=== PATIENT | male | born 1990 | race Caucasian/White ===

== ENCOUNTER → 2016-10-11 | Outpatient (CLI) | payer OTHER ==
[2016-10-11 13:44] LABS: LUTEINIZING HORMONE 3.5 mIU/mL (1.5-9.3); PROLACTIN 9.8 NG/ML (2.1-17.7)
[2016-10-11 13:45] LABS: FOLLICLE STIMULATING HORMONE 3.9 mIU/mL (1.4-18.1)
== END ==
LOC: M WUC 10:26
PROVIDERS: ATTEND Physician Assistant Medical
DX: E29.1 Testicular hypofunction (principal); E55.9 Vitamin D deficiency, unspecified

== ENCOUNTER → 2016-11-02 | Outpatient (CLI) | payer OTHER ==
--- NOTE | 2016-11-02 15:13 | REP ---
MRI BRAIN WITHOUT AND WITH CONTRAST: 11/02/2016 CLINICAL HISTORY: Testicular hypofunction. Evaluate for a pituitary microadenoma or other. No prior pertinent study. TECHNIQUE: Sagittal T1, axial T1 and T2, diffusion-weighted images and ADC mapping performed with coronal T1-sequence performed and then dynamic coronal pituitary scan with one sagittal T1-sequence and an axial T1 postinjection of 13 mL of ProHance. FINDINGS: Lateral ventricles are symmetric, midline, and without dilatation or displacement. Third and fourth ventricles are also unremarkable. The basal ganglia are symmetric and normal. Altman-white junction differentiation well maintained. T2 and FLAIR images show no hyperintense foci in the periventricular, subcortical, or deep central white matter tracts. Altman-white junction differentiation maintained. The cortical stripe preserved. There is no vascular territory infarct, hemorrhage, mass, or mass effect. Brainstem and cerebellum show no signal abnormality. The seventh/eighth cranial nerve complexes are unremarkable. Sagittal images show the corpus callosum and optic chiasm intact. The infundibulum is midline. The brainstem is intact with no cerebellar signal abnormality. Diffusion-weighted images and ADC mapping sequences show no evidence of acute ischemia. The dynamic pituitary sequence does not show persistent area of low enhancement that would strongly suggest a pituitary microadenoma. The upper margin of the pituitary is concave. The suprasellar cistern is normal. IMPRESSION: 1. Negative MRI brain. I do not see compelling evidence for pituitary microadenoma at this time. No acute finding. Signed by Aubrey Peterson MD 11/02/2016 04:47 P
== END ==
LOC: M RAD 11:07
PROVIDERS: ATTEND Physician Assistant Medical
DX: E29.1 Testicular hypofunction (principal)

== ENCOUNTER → 2017-01-01 | Outpatient (CLI) | payer OTHER ==
[2017-01-01 19:47] LABS: FREE T4 1.18 NG/DL (0.76-1.46)
== END ==
LOC: M WUC 17:29
PROVIDERS: ATTEND Physician Assistant Medical
DX: E03.9 Hypothyroidism, unspecified (principal)

== ENCOUNTER → 2017-02-27 | Outpatient (CLI) | payer OTHER | LOC: M WUC 14:21 | PROVIDERS: ATTEND Internal Medicine Endocrinology, Diabetes & Metabolism | DX: E29.1 Testicular hypofunction (principal) ==

== ENCOUNTER → 2017-07-17 | Outpatient (CLI) | payer OTHER ==
[2017-07-17 17:30] LABS: MEAN CORPUSCULAR HEMOGLOBIN 30.5 pg (27.0-33.0); MEAN CORPUSCULAR HGB CONC 35.6 g/dl (32.0-36.5); MEAN CORPUSCULAR VOLUME 85.7 fl (80.0-96.0); RED CELL DISTRIBUTION WIDTH 13.4 % (11.5-14.5); WHITE BLOOD COUNT 6.8 10^3/uL (4.0-10.0)
== END ==
LOC: M WUC 13:13
PROVIDERS: ATTEND Internal Medicine Endocrinology, Diabetes & Metabolism
DX: E29.1 Testicular hypofunction (principal)

== ENCOUNTER → 2017-11-13 | Outpatient (CLI) | payer OTHER ==
[2017-11-13 17:46] LABS: HEMATOCRIT 42.7 % (42.0-52.0); HEMOGLOBIN 15.1 g/dl (14.0-18.0)
[2017-11-13 18:35] LABS: TESTOSTERONE 705 NG/DL (241-827)
== END ==
LOC: M WUC 14:43
DX: E29.1 Testicular hypofunction (principal)
CPT/HCPCS: 84403

== ENCOUNTER → 2018-04-11 | Outpatient (CLI) | payer OTHER | LOC: M WUC 17:44 | DX: M25.572 Pain in left ankle and joints of left foot (principal) | CPT/HCPCS: 73610 ==

== ENCOUNTER → 2018-05-20 | Outpatient (CLI) | payer OTHER ==
[2018-05-20 19:38] LABS: HEMOGLOBIN 16.2 g/dl (13.5-17.5)
[2018-05-20 19:51] LABS: PSA SCREENING 0.78 NG/ML (< 4.0)
[2018-05-20 19:57] LABS: TESTOSTERONE 559 NG/DL (241-827)
== END ==
LOC: M WUC 16:30
DX: E29.1 Testicular hypofunction (principal)
CPT/HCPCS: 84403

== ENCOUNTER → 2018-12-10 | Outpatient (CLI) | payer OTHER ==
[2018-12-10 18:13] LABS: HEMATOCRIT 41.2 % (42.0-52.0); HEMOGLOBIN 14.1 g/dl (13.5-17.5)
== END ==
LOC: M WUC 15:03
PROVIDERS: ATTEND Nurse Practitioner Family
DX: E29.1 Testicular hypofunction (principal)

== ENCOUNTER → 2019-05-01 | Outpatient (REF) | payer OTHER ==
[2019-05-01 15:04] LABS: RHEUMATOID FACTOR QUANT < 10.0 IU/ML (<15.0)
[2019-05-01 15:14] LABS: FOLATE 18.7 NG/ML; VITAMIN B12 LEVEL 551 PG/ML
[2019-05-05 14:07] LABS: ANTINUCLEAR ANTIBODIES DIRECT Negative (Negative); COPPER PLASMA 102 ug/dL (72-166); VITAMIN B1 LEVEL WHOLE BLOOD 176.8 nmol/L (66.5-200.0); VITAMIN B6,PYRIDOXAL PHOSPHATE 9.1 ug/L (5.3-46.7); VITAMIN E(ALPHA TOCOPHEROL) 15.4 mg/L (5.9-19.4); VITAMIN E(GAMMA TOCOPHEROL) 3.5 mg/L (0.7-4.9)
== END ==
LOC: M LABNEURO 11:24
PROVIDERS: ATTEND Psychiatry & Neurology Neurology
DX: R20.0 Anesthesia of skin (principal)

== ENCOUNTER → 2019-06-03 | Outpatient (CLI) | payer OTHER ==
[2019-06-03 15:26] LABS: HEMOGLOBIN 14.4 g/dl (13.5-17.5)
== END ==
LOC: M WUC 13:30
PROVIDERS: ATTEND Nurse Practitioner Family
DX: E29.1 Testicular hypofunction (principal)

== ENCOUNTER 2019-11-26 20:45 | Emergency (ER) | payer OTHER ==
[~2019-11-26] VITALS: Ht 170.2 cm; Wt 140.4 kg
[2019-11-26] MEDS ORDERED: VITA400T15 PO (20:57)
[2019-11-26] MEDS ORDERED: MULTCAP PO (20:57)
[2019-11-26] MEDS ORDERED: CITA20TA6 PO (20:57)
[2019-11-26] MEDS ORDERED: NIAC500T64 PO (20:57)
[2019-11-26] MEDS ORDERED: LEVO75TA4 PO (20:57)
[2019-11-26] MEDS ORDERED: BUPR15TASR PO (20:57)
[2019-11-26] MEDS ORDERED: TEST200I14 IM (20:57)
[2019-11-26] MEDS ORDERED: OMEG10002 PO (20:57)
[2019-11-26] MEDS ORDERED: LISI-538 PO (20:57)
[2019-11-26] MEDS ORDERED: SUPETAB56 PO (20:57)
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
[2019-11-26] MEDS ORDERED: ROBA750T4 PO (23:02)
[2019-11-26 23:05] VITALS: BP 147/86
--- NOTE | 2019-11-27 07:52 | REP ---
Right index finger four view : There is no fracture or dislocation. Mineralization and joint spaces are normal. There are no calcifications or foreign bodies. Impression: Negative right index finger . Electronically Signed by Marvin Jaimes MD 11/27/2019 07:43 A
--- NOTE | 2019-11-27 07:52 | REP ---
Left knee five view : There is no fracture or dislocation. Mineralization and joint spaces are normal. There are no calcifications or foreign bodies. There is no hemarthrosis. Impression: Negative left knee . Electronically Signed by Marvin Jaimes MD 11/27/2019 07:43 A
== END 2019-11-26 23:12 | disposition home or self-care (01) ==
LOC: M ED 20:45
DX: S16.1XXA Strain of muscle, fascia and tendon at neck level, initial encounter (principal); S83.92XA Sprain of unspecified site of left knee, initial encounter; S63.610A Unspecified sprain of right index finger, initial encounter; V49.49XA Driver injured in collision with other motor vehicles in traffic accident, initial encounter; Y92.410 Unspecified street and highway as the place of occurrence of the external cause; I10 Essential (primary) hypertension; Z79.899 Other long term (current) drug therapy

== ENCOUNTER → 2019-12-19 | Outpatient (CLI) | payer OTHER ==
[~2019-12-19] MED LIST: BUPR15TASR PO; CITA20TA6 PO; LEVO75TA4 PO; LISI-538 PO; MULTCAP PO; NIAC500T64 PO; OMEG10002 PO; ROBA750T4 PO; SUPETAB56 PO; TEST200I14 IM; VITA400T15 PO
[2019-12-19 12:23] LABS: HEMATOCRIT 44.1 % (42.0-52.0); HEMOGLOBIN 15.1 g/dl (13.5-17.5)
== END ==
LOC: M WUC 10:31
PROVIDERS: ATTEND Nurse Practitioner Family
DX: E29.1 Testicular hypofunction (principal)

== ENCOUNTER 2020-04-08 19:22 | Emergency (ER) | payer OTHER ==
[~2020-04-08] VITALS: Ht 170.2 cm; Wt 131.4 kg
[2020-04-08 20:24] LABS: BASO % 0.3 % (0.0-1.0); EOS # 0.2 10^3/uL (0.0-0.5); EOS % 2.2 % (0.0-3.0); HEMATOCRIT 43.4 % (42.0-52.0); HEMOGLOBIN 15.3 g/dl (13.5-17.5); LYMPH # 1.3 10^3/uL (1.5-5.0); LYMPH % 13.1 % (24.0-44.0); MEAN CORPUSCULAR HEMOGLOBIN 29.7 pg (27.0-33.0); MEAN CORPUSCULAR HGB CONC 35.3 g/dl (32.0-36.5); MEAN CORPUSCULAR VOLUME 84.1 fl (80.0-96.0); MONO # 0.6 10^3/uL (0.0-0.8); MONO % 6.2 % (0.0-5.0); NEUTROPHILS # 7.7 10^3/uL (1.5-8.5); NEUTROPHILS % 77.6 % (36.0-66.0); PLATELET COUNT, AUTOMATED 259 10^3/uL (150-450); RED BLOOD COUNT 5.16 10^6/uL (4.30-6.10); WHITE BLOOD COUNT 9.9 10^3/uL (4.0-10.0)
[2020-04-08 20:43] LABS: ALBUMIN 4.4 GM/DL (3.2-5.2); BILIRUBIN,DIRECT 0.3 MG/DL (0.0-0.2); BILIRUBIN,TOTAL 1.2 MG/DL (0.2-1.0); TOTAL PROTEIN 7.7 GM/DL (6.4-8.2)
[2020-04-08] MEDS ORDERED: NS 1,000 ML IV ONE (20:45)
[2020-04-08] MEDS ORDERED: MORPHINE 10 MG/ML 1ML VIAL (J2270) IV ONE (20:45)
[2020-04-08] MEDS ORDERED: METOCLOPRAMIDE INJ 10MG/2ML VIAL (J2765 PER 1) IV ONE (20:45)
[2020-04-08] MEDS: GASTROGRAFIN SOLUTION 30ML PO SCH ×2 (21:26→22:09)
[2020-04-08] MEDS ORDERED: ISOVUE-370 76% 100ML VIAL As Ordered ONE (22:26)
[2020-04-08] MEDS ORDERED: MORPHINE 4 MG/ML 1ML VIAL/SYRINGE (J2270) IV ONE (23:15)
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
[2020-04-08] MEDS ORDERED: TAMSULOSIN 0.4 MG CAP PO ONE (23:30)
[2020-04-08] MEDS ORDERED: KETOROLAC 30 MG/ML 1ML VIAL IV ONE (23:30)
[2020-04-08 23:38] LABS: APPEARANCE, URINE HAZY (CLEAR); BACTERIA, URINE AUTO NEGATIVE (NEGATIVE); BILIRUBIN, URINE AUTO NEGATIVE (NEGATIVE); BLOOD, URINE BLOOD 2+ (NEGATIVE); COLOR, URINE YELLOW (YELLOW); GLUCOSE, URINE (UA) AUTO NEGATIVE (NEGATIVE); KETONE, URINE AUTO 2+ mg/dL (NEGATIVE); LEUKOCYTE ESTERASE, URINE AUTO NEGATIVE (NEGATIVE); MUCUS, URINE SMALL (NEGATIVE); NITRITE, URINE AUTO NEGATIVE (NEGATIVE); PROTEIN, URINE AUTO NEGATIVE (NEGATIVE); RBC, URINE AUTO 29 /HPF (0-3); SPECIFIC GRAVITY URINE AUTO 1.021 (1.002-1.035); SQUAMOUS EPITHELIAL CELL UR AU 0 /HPF (0-6); UROBILINOGEN, URINE AUTO 0.2 mg/dL (0.0-2.0); WBC, URINE AUTO 1 /HPF (0-3)
[2020-04-09] MEDS ORDERED: FLOM0.4C39 PO (00:17)
[2020-04-09 00:31] VITALS: BP 159/70
== END 2020-04-09 00:51 | disposition home or self-care (01) ==
LOC: M ED 19:22
DX: N20.1 Calculus of ureter (principal); Z98.890 Other specified postprocedural states; I10 Essential (primary) hypertension; F33.9 Major depressive disorder, recurrent, unspecified; E66.9 Obesity, unspecified; Z79.899 Other long term (current) drug therapy; Z79.890 Hormone replacement therapy
CPT/HCPCS: 74177; 80047; 80076; 81001; 83605; 83690; 85025; 86850; 86900; 86901; 93041; 96361; 96374; 96375; 96376; 99285; J1885; J2270; J2765; Q9963; Q9967

== ENCOUNTER → 2020-06-11 | Outpatient (CLI) | payer OTHER ==
[~2020-06-11] MED LIST changes: +FLOM0.4C39 PO
[2020-06-11 15:35] LABS: HEMATOCRIT 42.2 % (42.0-52.0); HEMOGLOBIN 14.4 g/dl (13.5-17.5)
== END ==
LOC: M WUC 12:06
PROVIDERS: ATTEND Nurse Practitioner Family
DX: E29.1 Testicular hypofunction (principal)

== ENCOUNTER → 2020-09-06 | Outpatient (CLI) | payer SELFPAY | LOC: M LABCAHC 15:25 | PROVIDERS: ATTEND Pediatrics | DX: Z11.59 Encounter for screening for other viral diseases (principal) ==

== ENCOUNTER → 2020-12-22 | Outpatient (CLI) | payer OTHER, MEDICAID ==
[~2020-12-22] MED LIST changes: -LISI-538 PO; +LISI20TA33 PO
[2020-12-22 16:20] LABS: HEMATOCRIT 43.6 % (42.0-52.0); HEMOGLOBIN 14.7 g/dl (13.5-17.5)
== END ==
LOC: M WUC 13:55
PROVIDERS: ATTEND Nurse Practitioner Family
DX: E29.1 Testicular hypofunction (principal)

== ENCOUNTER → 2021-04-28 | Outpatient (CLI) | payer BC, OTHER, MEDICAID ==
[2021-04-28 16:33] LABS: HEMATOCRIT 43.6 % (42.0-52.0); HEMOGLOBIN 15.1 g/dl (13.5-17.5)
== END ==
LOC: M WUC 13:36
PROVIDERS: ATTEND Nurse Practitioner Family
DX: E29.1 Testicular hypofunction (principal)
CPT/HCPCS: 36415; 84403; 85014; 85018; G0103

== ENCOUNTER → 2021-11-03 | Outpatient (CLI) | payer OTHER, BC, MEDICAID ==
[2021-11-03 15:56] LABS: HEMATOCRIT 40.2 % (42.0-52.0); HEMOGLOBIN 14.1 g/dl (13.5-17.5); MEAN CORPUSCULAR HEMOGLOBIN 30.7 pg (27.0-33.0); MEAN CORPUSCULAR HGB CONC 35.1 g/dl (32.0-36.5); MEAN CORPUSCULAR VOLUME 87.4 fl (80.0-96.0); PLATELET COUNT, AUTOMATED 206 10^3/uL (150-450); WHITE BLOOD COUNT 6.8 10^3/uL (4.0-10.0)
[2021-11-03 16:21] LABS: ALBUMIN 4.1 GM/DL (3.2-5.2); ALT/SGPT 28 U/L (12-78); BLOOD UREA NITROGEN 14 MG/DL (7-18); CALCIUM LEVEL 9.2 MG/DL (8.5-10.1); CARBON DIOXIDE LEVEL 31 MEQ/L (21-32); CHLORIDE LEVEL 107 MEQ/L (98-107); FERRITIN 182 NG/ML (26-388); GLOMERULAR FILTRATION RATE > 60.0 (>60); GLUCOSE, FASTING 79 MG/DL (70-100); IRON (FE) 83 UG/DL (65-175); PERCENT SATURATION 32.9 % (19.7-50.0); POTASSIUM SERUM 4.2 MEQ/L (3.5-5.1); SODIUM LEVEL 142 MEQ/L (136-145); TOTAL IRON BINDING CAPACITY 252 UG/DL (250-450); TOTAL PROTEIN 6.9 GM/DL (6.4-8.2)
[2021-11-03 16:29] LABS: VITAMIN B12 LEVEL 434 PG/ML (247-911)
== END ==
LOC: M WUC 11:46
PROVIDERS: ATTEND Surgery
DX: K91.2 Postsurgical malabsorption, not elsewhere classified (principal)

== ENCOUNTER → 2021-11-03 | Outpatient (CLI) | payer OTHER, BC, MEDICAID ==
[2021-11-03 15:55] LABS: HEMATOCRIT 40.3 % (42.0-52.0); HEMOGLOBIN 14.2 g/dl (13.5-17.5)
== END ==
LOC: M WUC 11:49
PROVIDERS: ATTEND Nurse Practitioner Family
DX: E29.1 Testicular hypofunction (principal)

== ENCOUNTER → 2022-06-01 | Outpatient (CLI) | payer BC, MEDICAID ==
[2022-06-01 16:40] LABS: HEMATOCRIT 40.1 % (42.0-52.0); HEMOGLOBIN 14.3 g/dl (13.5-17.5)
== END ==
LOC: M WUC 13:05
PROVIDERS: ATTEND Nurse Practitioner Family
DX: E29.1 Testicular hypofunction (principal)
CPT/HCPCS: 84403; G0103

== ENCOUNTER → 2022-06-01 | Outpatient (CLI) | payer BC, MEDICAID ==
[2022-06-01 16:40] LABS: HEMATOCRIT 41.1 % (42.0-52.0); HEMOGLOBIN 14.6 g/dl (13.5-17.5); MEAN CORPUSCULAR HEMOGLOBIN 30.4 pg (27.0-33.0); MEAN CORPUSCULAR HGB CONC 35.5 g/dl (32.0-36.5); MEAN CORPUSCULAR VOLUME 85.6 fl (80.0-96.0); PLATELET COUNT, AUTOMATED 220 10^3/uL (150-450); WHITE BLOOD COUNT 5.3 10^3/uL (4.0-10.0)
[2022-06-01 17:30] LABS: ALBUMIN 3.9 GM/DL (3.2-5.2); ALT/SGPT 26 U/L (12-78); BILIRUBIN,TOTAL 0.7 MG/DL (0.2-1.0); BLOOD UREA NITROGEN 14 MG/DL (7-18); CALCIUM LEVEL 9.2 MG/DL (8.5-10.1); CARBON DIOXIDE LEVEL 27 MEQ/L (21-32); CHLORIDE LEVEL 104 MEQ/L (98-107); CREATININE FOR GFR 0.74 MG/DL (0.70-1.30); FERRITIN 161 NG/ML (26-388); GLOMERULAR FILTRATION RATE > 60.0 (>60); GLUCOSE, FASTING 86 MG/DL (70-100); IRON (FE) 110 UG/DL (65-175); PERCENT SATURATION 40.9 % (19.7-50.0); POTASSIUM SERUM 4.3 MEQ/L (3.5-5.1); SODIUM LEVEL 138 MEQ/L (136-145); TOTAL IRON BINDING CAPACITY 269 UG/DL (250-450); TOTAL PROTEIN 6.8 GM/DL (6.4-8.2)
[2022-06-01 18:59] LABS: VITAMIN B12 LEVEL 464 PG/ML (247-911)
== END ==
LOC: M WUC 12:58
PROVIDERS: ATTEND Surgery
DX: K91.2 Postsurgical malabsorption, not elsewhere classified (principal)

== ENCOUNTER → 2022-07-06 | Outpatient (REF) | LOC: M EMP 08:49 | PROVIDERS: ATTEND Family Medicine | DX: Z20.822 Contact with and (suspected) exposure to COVID-19 (principal) ==

== ENCOUNTER → 2023-01-16 | Outpatient (CLI) | payer BC, MEDICAID ==
[2023-01-16 17:04] LABS: BASO % 0.4 % (0.0-1.0); EOS # 0.2 10^3/uL (0.0-0.5); EOS % 3.2 % (0.0-3.0); HEMATOCRIT 41.9 % (42.0-52.0); HEMOGLOBIN 14.7 g/dl (13.5-17.5); LYMPH # 1.2 10^3/uL (1.5-5.0); LYMPH % 22.4 % (24.0-44.0); MEAN CORPUSCULAR HEMOGLOBIN 30.2 pg (27.0-33.0); MEAN CORPUSCULAR HGB CONC 35.1 g/dl (32.0-36.5); MONO # 0.4 10^3/uL (0.0-0.8); MONO % 6.8 % (2.0-8.0); NEUTROPHILS # 3.5 10^3/uL (1.5-8.5); NEUTROPHILS % 66.8 % (36.0-66.0); PLATELET COUNT, AUTOMATED 213 10^3/uL (150-450); RED BLOOD COUNT 4.87 10^6/uL (4.30-6.10); WHITE BLOOD COUNT 5.3 10^3/uL (4.0-10.0)
[2023-01-16 17:36] LABS: ALBUMIN 4.1 G/DL (3.2-5.2); ALKALINE PHOSPHATASE 99 U/L (46-116); ALT/SGPT 30 U/L (7.0-40); AST/SGOT 22 U/L (<34); BILIRUBIN,TOTAL 0.9 MG/DL (0.3-1.2); BLOOD UREA NITROGEN 19 MG/DL (9-23); CARBON DIOXIDE LEVEL 31 MMOL/L (20-31); CHLORIDE LEVEL 103 MMOL/L (98-107); CHOLESTEROL LEVEL 182 MG/DL (<200); CREATININE FOR GFR 0.76 MG/DL (0.70-1.30); GLOMERULAR FILTRATION RATE > 60.0 (>60); GLUCOSE, FASTING 84 MG/DL (60-100); HDL CHOLESTEROL 30.8 MG/DL (>40); NON-HDL-C 151.2 MG/DL; POTASSIUM SERUM 4.3 MMOL/L (3.5-5.1); SODIUM LEVEL 138 MMOL/L (136-145); THYROID STIMULATING HORMONE 0.268 uIU/ML (0.55-4.78); TOTAL PROTEIN 6.9 G/DL (5.7-8.2); TRIGLYCERIDES LEVEL 111 MG/DL (<150)
== END ==
LOC: M WUC 13:18
PROVIDERS: ATTEND Physician Assistant
DX: Z98.84 Bariatric surgery status (principal); E03.9 Hypothyroidism, unspecified; E78.2 Mixed hyperlipidemia

== ENCOUNTER → 2023-01-16 | Outpatient (CLI) | payer BC, MEDICAID ==
[2023-01-16 17:06] LABS: HEMATOCRIT 41.7 % (42.0-52.0); HEMOGLOBIN 14.7 g/dl (13.5-17.5)
== END ==
LOC: M WUC 13:15
PROVIDERS: ATTEND Nurse Practitioner Family
DX: E29.1 Testicular hypofunction (principal)

== ENCOUNTER → 2023-06-04 | Outpatient (REF) | LOC: M EMP 12:18 | PROVIDERS: ATTEND Family Medicine | DX: Z20.828 Contact with and (suspected) exposure to other viral communicable diseases (principal) ==

== ENCOUNTER → 2023-06-19 | Outpatient (CLI) | payer BC, MEDICAID ==
[2023-06-19 17:26] LABS: HEMATOCRIT 41.5 % (42.0-52.0); HEMOGLOBIN 14.3 g/dl (13.5-17.5)
== END ==
LOC: M WUC 14:49
PROVIDERS: ATTEND Nurse Practitioner Family
DX: E29.1 Testicular hypofunction (principal)

== ENCOUNTER → 2023-11-01 | Outpatient (CLI) | payer BC, MEDICAID ==
[2023-11-01 18:24] LABS: HEMATOCRIT 40.8 % (42.0-52.0); HEMOGLOBIN 14.4 g/dl (13.5-17.5); MEAN CORPUSCULAR HEMOGLOBIN 30.2 pg (27.0-33.0); MEAN CORPUSCULAR HGB CONC 35.3 g/dl (32.0-36.5); MEAN CORPUSCULAR VOLUME 85.5 fl (80.0-96.0); PLATELET COUNT, AUTOMATED 212 10^3/uL (150-450); RED BLOOD COUNT 4.77 10^6/uL (4.30-6.10); WHITE BLOOD COUNT 4.7 10^3/uL (4.0-10.0)
[2023-11-01 18:42] LABS: ALBUMIN 4.2 G/DL (3.2-5.2); ALKALINE PHOSPHATASE 99 U/L (46-116); ALT/SGPT 42 U/L (7.0-40); AST/SGOT 19 U/L (<34); BILIRUBIN,TOTAL 0.8 MG/DL (0.3-1.2); BLOOD UREA NITROGEN 22 MG/DL (9-23); CARBON DIOXIDE LEVEL 29 MMOL/L (20-31); CHLORIDE LEVEL 107 MMOL/L (98-107); CHOLESTEROL LEVEL 85 MG/DL (<200); GLOMERULAR FILTRATION RATE > 60.0 (>60); GLUCOSE, FASTING 89 MG/DL (60-100); HDL CHOLESTEROL 29.3 MG/DL (>40); LDL CHOLESTEROL 44.1 MG/DL (<100); NON-HDL-C 55.7 MG/DL; POTASSIUM SERUM 4.1 MMOL/L (3.5-5.1); SODIUM LEVEL 141 MMOL/L (136-145); THYROID STIMULATING HORMONE 0.178 uIU/ML (0.55-4.78); TOTAL PROTEIN 6.6 G/DL (5.7-8.2); TRIGLYCERIDES LEVEL 58 MG/DL (<150)
== END ==
LOC: M WUC 12:40
PROVIDERS: ATTEND Physician Assistant
DX: E03.9 Hypothyroidism, unspecified (principal); E78.2 Mixed hyperlipidemia; Z98.84 Bariatric surgery status

== ENCOUNTER → 2023-11-01 | Outpatient (CLI) | payer BC, MEDICAID | LOC: M WUC 12:37 | PROVIDERS: ATTEND Nurse Practitioner Family | DX: E29.1 Testicular hypofunction (principal) ==

== ENCOUNTER → 2024-04-15 | Outpatient (CLI) | payer OTHER | LOC: M WUC 10:35 | PROVIDERS: ATTEND Physician Assistant | DX: E03.9 Hypothyroidism, unspecified (principal) ==

== ENCOUNTER → 2024-08-03 | Outpatient (CLI) | payer OTHER ==
[2024-08-03 19:09] LABS: HEMOGLOBIN A1c 4.8 % (4.0-6.0)
[2024-08-03 19:17] LABS: RHEUMATOID FACTOR QUANT < 3.5 IU/ML (<14)
[2024-08-03 19:19] LABS: FOLATE 16.1 NG/ML (>5.4); THYROID STIMULATING HORMONE 0.971 uIU/ML (0.55-4.78); VITAMIN B12 LEVEL 564 PG/ML (211-911)
[2024-08-05 09:08] LABS: T P ELECTROPHORESIS SO 6.9 g/dL (6.1-8.1)
[2024-08-05 14:12] LABS: ANA SCREEN, IFA NEGATIVE (NEGATIVE)
[2024-08-06 14:43] LABS: ALBUMIN SPEP 4.5 g/dL (3.8-4.8); ALPHA-1-GLOBULINS SO 0.3 g/dL (0.2-0.3); ALPHA-2-GLOBULINS SO 0.6 g/dL (0.5-0.9); BETA 2 GLOBULIN 0.3 g/dL (0.2-0.5); BETA-GLOBULIN SO 0.4 g/dL (0.4-0.6); GAMMA GLOBULINS SO 0.9 g/dL (0.8-1.7)
== END ==
LOC: M WUC 10:44
PROVIDERS: ATTEND Psychiatry & Neurology Neurology
DX: G62.9 Polyneuropathy, unspecified (principal)

== ENCOUNTER → 2025-05-20 | Outpatient (CLI) | payer OTHER ==
[~2025-05-20] MED LIST changes: -FLOM0.4C39 PO; +TAMS-18 PO
[2025-05-20 13:04] LABS: PLATELET COUNT, AUTOMATED 205 10^3/uL (150-450)
[2025-05-20 13:53] LABS: ALT/SGPT 41 U/L (7.0-40); AST/SGOT 27 U/L (<34); CALCIUM LEVEL 8.8 MG/DL (8.5-10.1); CARBON DIOXIDE LEVEL 29 MMOL/L (20-31); CHLORIDE LEVEL 104 MMOL/L (98-107); CHOLESTEROL LEVEL 107 MG/DL (<200); CHOLESTEROL RISK RATIO 3.13 (<5); CREATININE FOR GFR 0.84 MG/DL (0.70-1.30); GLOMERULAR FILTRATION RATE > 90.0 (>60); LDL CHOLESTEROL 50.9 MG/DL (<100); NON-HDL-C 72.9 MG/DL; POTASSIUM SERUM 4.5 MMOL/L (3.5-5.1); SODIUM LEVEL 144 MMOL/L (136-145); T UPTAKE 47.6 % (22.5-37.0); THYROXINE (T4) 9.6 UG/DL (4.5-10.9); TRIGLYCERIDES LEVEL 110 MG/DL (<150)
[2025-05-21 13:40] LABS: EBV AB TO NUCLEAR ANTIGEN > 600.00 U/mL (<18.00); EBV VIRAL CAPSID AG IGG > 750.00 U/mL (<18.00); EBV VIRAL CAPSID AG IGM < 36.00 U/mL (<36.00)
== END ==
LOC: M WUC 08:15
PROVIDERS: ATTEND Physician Assistant
DX: E78.2 Mixed hyperlipidemia (principal); E03.9 Hypothyroidism, unspecified; R53.83 Other fatigue; Z98.84 Bariatric surgery status